=== PATIENT | male | born 1955 | race African-American/Black ===

== ENCOUNTER 2017-06-26 20:44 | Emergency (ER) | payer BC ==
[~2017-06-26] VITALS: Ht 172.7 cm; Wt 83.9 kg
[~2017-06-26 20:44] MED LIST: LOPID600 MG ORAL; NIASPAN500 M1 ORAL
[2017-06-26 20:55] VITALS: BP 158/99
[2017-06-26] MEDS ORDERED: VENTOLIN HFA18 GM INH (21:08)
[2017-06-26] MEDS ORDERED: PROMETH-CODEIN 65 ML PO (21:08)
--- NOTE | 2017-06-26 21:16 | Emergency Room Report ---
History of Present Illness General Chief Complaint: Flu Like Symptoms Source: Patient Present Illness HPI [id number] walk-in with 1-2 days dry cough, mild rhinorrhea No fever/chills, myalgias Got flu vaccine this year Denies smoking history, asthma, COPD, CHF history Just got back from [place], cough worse on plane No OTC meds taken Allergies: Coded Allergies: No Known Allergies (Unverified , 09/16/12) Patient History Past Medical History: none Past Surgical History: none Pertinent Family History: none Social History: Denies: smoking, alcohol use, drug use Immunizations: UTD Reviewed Nursing Documentation: PMH: Agreed; PSxH: Agreed Nursing Documentation-PMH Hx Cancer: Yes - prostate CA 2008 Hx Dialysis: No - prostectomy 2008 Review of Systems All Other Systems: negative except mentioned in HPI Physical Exam Vital Signs Date Time Temp Pulse Resp B/P (MAP) Pulse Ox O2 Delivery O2 Flow Rate FiO2 06/26/17 20:48 100.4 90 16 158/99 96 Room Air 100.4 Sp02 EP Interpretation: reviewed, normal General Appearance: normal inspection, well appearing, no apparent distress, alert, GCS 15, non-toxic Head: normocephalic, atraumatic Eyes: bilateral eye PERRL, bilateral eye EOMI ENT: normal ENT inspection, hearing grossly normal, normal pharynx, no angioedema, normal voice, TMs + canals normal, uvula midline, moist mucus membranes Neck: normal inspection, full range of motion, supple, thyroid normal, no meningismus, no bony tend Respiratory: normal inspection, lungs clear, normal breath sounds, no rhonchi, no respiratory distress, no retraction, no accessory muscle use, no wheezing, speaking full sentences Cardiovascular #1: regular rate, rhythm, no edema, no JVD, normal capillary refill Gastrointestinal: normal inspection, normal bowel sounds, non tender, soft, no mass, no peritonitis, non-distended, no guarding, no hernia, no pulsatile mass Genitourinary: no CVA tenderness Musculoskeletal: normal inspection, back normal, normal range of motion, no calf tenderness, pelvis stable, Aarti's Sign negative Neurologic: normal inspection, alert, oriented x3, responsive, product marketing specialist III-XII nml as tested, motor strength/tone normal, cerebellar normal, normal gait, speech normal Psychiatric: normal inspection, judgement/insight normal, mood/affect normal, no suicidal/homicidal ideation, no delusions Skin: normal inspection, normal color, no rash Lymphatic: normal inspection, no adenopathy Medical Decision Making Diagnostic Impression: Primary Impression: Upper respiratory disease ER Course VS significant for fever No evidence of bacterial infection on exam of ENT, lungs Lungs CTAB Unlikely flu given no myalgias, overall well appearance Likely viral URI, bronchitis ER course: Patient has remained stable during ED stay. Disposition: Patient is to be discharged to home. Prescriptions given are ventolin, cough syrup Patient is instructed to follow up with their primary care doctor within 5 days. Strict return precautions discussed with patient such as fever, chills, worsening/severe pain, nausea, vomiting, which may indicate severe illness. Patient verbalizes understanding and agrees with plan. Please note that this Emergency Department Report was dictated using [employer] technology software, occasionally this can lead to erroneous entry secondary to interpretation by the dictation equipment Last Vital Signs Date Time Temp Pulse Resp B/P (MAP) Pulse Ox O2 Delivery O2 Flow Rate FiO2 06/26/17 20:55 100.4 90 16 158/99 96 Room Air 100.4 Status: improved Disposition: HOME, SELF-CARE Condition: Improved Scripts Promethazine HCl/Codeine (Prometh-Codein 6.25-10 mg/5 ml) 5 Ml Syrup 5 ML PO BID for cough for 7 Days, #1 UNIT Prov: IGNACIA ALEXANDER M.D. 06/26/17 Albuterol Sulfate (VENTOLIN HFA) 18 Gm Hfa.aer.ad 1 PUFF INH EVERY 6 HOURS for cough, SOB, #18 GM 0 Refills Prov: IGNACIA ALEXANDER M.D. 06/26/17 Patient Instructions: Acute Bronchitis, [id number] Additional Instructions: For cough, use albuterol inhaler during the day. At night use cough syrup or tea with honey. Drink plenty of fluids, eat healthy foods, try to get a good amount of exercise Turn to ER for continued fevers, body aches, unable to take medication, drink water for a few don't feel better in one week IGNACIA ALEXANDER M.D. Jun 26, 2017 21:16
[2017-06-26 21:20] VITALS: BP 158/99
== END 2017-06-26 21:19 | disposition home or self-care (01) ==
LOC: EMR 21:05
DX: J06.9 Acute upper respiratory infection, unspecified (principal); Z85.46 Personal history of malignant neoplasm of prostate; Z90.79 Acquired absence of other genital organ(s)
CPT/HCPCS: 99284